=== PATIENT | female | born 1975 | race Caucasian/White ===

== ENCOUNTER 2020-10-13 21:42 | Emergency (ER) | payer MEDICAID ==
[~2020-10-13] VITALS: Ht 167.6 cm; Wt 68.2 kg
[~2020-10-13 21:42] MED LIST: ALBUTEROL SULF8.5 GM INH; CLARITIN 10 MG10 MG PO; DICLOFENAC SODI50 MG PO; FLUTICASONE PRO16 GM NASAL; PREDNISONE20 MG PO
[2020-10-13 21:58] VITALS: BP 149/90; Ht 167.6 cm; Wt 68.2 kg
[2020-10-13] MEDS ORDERED: CEPHALEXIN500 M1 PO (22:29)
== END 2020-10-13 22:31 | disposition home or self-care (01) ==
LOC: D.ER 21:42
DX: S40.861A Insect bite (nonvenomous) of right upper arm, initial encounter (principal); M32.9 Systemic lupus erythematosus, unspecified; W57.XXXA Bitten or stung by nonvenomous insect and other nonvenomous arthropods, initial encounter; Y93.9 Activity, unspecified; Y92.9 Unspecified place or not applicable